=== PATIENT | male | born 1975 | race Caucasian/White ===

== ENCOUNTER 2017-04-25 03:23 | Emergency (ER) | payer BC ==
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
[2017-04-25 04:34] VITALS: BP 0/0
== END 2017-04-25 06:47 | disposition expired ==
LOC: MW.ED 03:23 → MERGE 03:23 → MW.ED 06:47
DX: S31.104A Unspecified open wound of abdominal wall, left lower quadrant without penetration into peritoneal cavity, initial encounter (principal); S01.80XA Unspecified open wound of other part of head, initial encounter; S41.002A Unspecified open wound of left shoulder, initial encounter; I46.8 Cardiac arrest due to other underlying condition; W34.00XA Accidental discharge from unspecified firearms or gun, initial encounter
CPT/HCPCS: 31500; 32551; 51702; 71010; 74000; 92950; 99285; 99285-25